=== PATIENT | male | born 1960 ===

== ENCOUNTER 2022-12-21 08:31 | Outpatient (REF) | payer SELFPAY ==
--- NOTE | 2022-12-21 12:57 | MHC.AU.HA3 ---
Hearing Instrument Follow-Up- Binaural Date of Visit: 12/21/22 Right Ear: Make, Model, Color, Serial Number: Oticon OPN S1 miniRITE SN: [id number] Color: Silver Stockholder Repair Warranty: 04/04/2022 Stockholder Loss and Damage Warranty: 04/04/2022 Battery Size: 312 Endocrinology Teacher/Slim Tube: 2/85 Earmold/Dome/CShell/SlimTip:8mm double rowan dome Type of Wax Guard: miniFit Dispensed By: [facility] Date of Fitting: February 2019 Left Ear: Make, Model, Color, Serial Number: Oticon OPN S1 miniRITE SN: [id number] Color: Silver Stockholder Repair Warranty: 04/04/2022 Stockholder Loss and Damage Warranty: 04/04/2022 Battery Size: 312 Endocrinology Teacher/Slim Tube: 2/85 Earmold/Dome/CShell/SlimTip: 8mm double rowan dome Type of Wax Guard: miniFit Dispensed By: [facility] Date of Fitting: February 2019 Follow-Up Summary: Yakov was a previous patient at the audiology clinic at [facility]. He has decided to transfer care here. His left chauffeur airport limousine is broken at the junction to the hearing aid. Cleaned both hearing aids. Replaced domes, wax guards, and retention tails and replaced left chauffeur airport limousine. Paid $150.00. Recommendations: Hearing instrument follow-up or maintenance as needed. Diagnosis Code(s): Primary Diagnosis: H90.3 Bilateral Sensorineural Hearing Loss Signature: Provider: Juan Milan, [facility]
== END 2022-12-21 08:32 | disposition home or self-care (01) ==
LOC: HO.HAP 08:31
PROVIDERS: Visit Provider Internal Medicine
DX: Z46.1 Encounter for fitting and adjustment of hearing aid (principal); H90.3 Sensorineural hearing loss, bilateral
CPT/HCPCS: V5299

== ENCOUNTER 2023-12-28 08:52 | Outpatient (REF) | payer BC, SELFPAY | END 2023-12-28 08:53 | disposition home or self-care (01) | LOC: HO.SH 08:52 | PROVIDERS: Visit Provider Nurse Practitioner Primary Care | DX: Z01.118 Encounter for examination of ears and hearing with other abnormal findings (principal); H90.3 Sensorineural hearing loss, bilateral | CPT/HCPCS: 92557 ==

== ENCOUNTER 2023-12-28 09:34 | Outpatient (REF) | payer SELFPAY ==
--- NOTE | 2023-12-28 09:55 | MHC.AU.HA3 ---
Hearing Instrument Follow-Up- Binaural Date of Visit: 12/28/23 Right Ear: George, Model, Color, Serial Number: Oticon OPN S1 miniRITE SN: [id number] Color: Silver Casing Finisher And Stuffer Repair Warranty: 04/04/2022 Casing Finisher And Stuffer Loss and Damage Warranty: 04/04/2022 Battery Size: 312 Construction Teacher/Slim Tube: 2/85 Earmold/Dome/CShell/SlimTip:8mm power dome with retention tail Type of Wax Guard: miniFit Dispensed By: [facility] Date of Fitting: February 2019 Left Ear: George, Model, Color, Serial Number: Oticon OPN S1 miniRITE SN: [id number] Color: Silver Casing Finisher And Stuffer Repair Warranty: 04/04/2022 Casing Finisher And Stuffer Loss and Damage Warranty: 04/04/2022 Battery Size: 312 Construction Teacher/Slim Tube: 2/85 Earmold/Dome/CShell/SlimTip: 8mm power dome with retention tail Type of Wax Guard: miniFit Dispensed By: [facility] Date of Fitting: February 2019 Follow-Up Summary: Updated hearing test and routine hearing aid maintenance. Noticing increasing hearing difficulties even with hearing aids. Requested records from [facility] to determine if there has been a change in hearing. Cleaned both hearing aids. Replaced domes, wax guards, and retention tails. Vacuumed microphones. Ran through dehumidifier. Listening check demonstrated hearing aids amplifying clearly. Switched to 8mm power domes due to limited high frequency gain from feedback analyzer. Improvement in feedback curve. Reprogrammed with power domes to updated hearing test. Noted improvement in sound quality in office. Domes feel full in ears but willing to acclimate. Recommendations: Hearing instrument follow-up or maintenance as needed. Please contact our clinic with any questions or concerns. Diagnosis Code(s): Primary Diagnosis: H90.3 Bilateral Sensorineural Hearing Loss Signature: Provider: Juan Milan, [facility]
== END 2023-12-28 09:35 | disposition home or self-care (01) ==
LOC: HO.HAP 09:34
PROVIDERS: Visit Provider Nurse Practitioner Primary Care
DX: Z46.1 Encounter for fitting and adjustment of hearing aid (principal); H90.3 Sensorineural hearing loss, bilateral
CPT/HCPCS: 92593; V5267

== ENCOUNTER 2024-12-09 08:29 | Outpatient (REF) | payer SELFPAY ==
--- OUTSIDE RECORDS SUMMARY | 2024-12-09 08:36 | XMS_ITS | Clinical Summary ---
Author Organization [address] [place] [address] Address [address] [place] [address] Phone Care Team Providers Care Lining Strap Closer Name Role Phone Analy Giraldo NP Primary Care Provider +1- [phone] Medications evolocumab (Repatha SureClick) 140 mg/mL pen injector injection Inject 1 mL (140 mg total) under the skin every 14 (fourteen) days. 6 mL 3 05/30/2024 Active Encounters Date Type Department Care Team Description 11/04/[address] [facility] [address] [place] [address] Julio Yusuf MD Prior Auth (Repatha SureClick 140MG/ML auto-injectors) from Last 3 Months Medical History Medical History Date Comments Depression DX:Depression Anxiety DX:Anxiety Bladder cancer ([facility]/HCC V24, [facility]/HCC V28) DX:Bladder cancer ([facility]) Hearing loss DX:Hearing loss Kidney calculus DX:Kidney calcul us CARLOS (obstructive sleep apnea) DX :CARLOS (obstructive sleep apnea) Restless leg DX:Restless leg Social History Tobacco Use Types Packs/Day Years Used Date Smoking Tobacco: Former Smokeless Tobacco: Never Alcohol Use Standard Drinks/Week Comments Yes 0 (1 standard drink = 0.6 oz pur e alcohol) Sex and Gender Information Value Date Recorded Sex Assigned at Not on file Legal Sex Male 2:30 AM EST Gender Identity Not on file Sexual Orientation Not on file Obstetrics History Last Filed Vital Signs Vital Sign Reading Time Taken Comments Blood Pressure 120/84 10/15/2023 9:24 AM EDT Sit ting L Arm Pulse 73 10/15/2023 9:24 AM EDT Temperature - - Respiratory Rate - - Oxygen Saturation - - Inhaled Oxygen Concentration - - Weight 104 kg (230 lb) 10/15/2023 9:24 AM EDT Height 175.3 cm (5' 9 ) 10/15/2023 9:24 AM EDT Body Mass Index 33.96 10/15/2023 9:24 AM EDT Plan of Treatment Health Maintenance Due Date Last Done Comments COVID-19 Vaccine (#1) 12/05/1965 DTaP,Tdap,and Td Vaccines (1 - Tdap) 1981 Zoster Vaccines (1 of 2) 1981 Pneumococcal Vaccine: 50+ Ye ars (1 of 1 - PCV) 2012 Colorectal Cancer Screening: Colonoscopy 05/14/2022 Depression Screening 05/14/2022 HIV Screening 05/14/2022 Hepatitis C Screening 05/14/2022 Social Influencers of Health Screening 05/14/2022 Influenza Vaccine (Season Ended) 2025 Cholesterol Screening (Lipid Panel) 11/10/2029 11/10/2024 RSV Immunization Adult Patie nts (1 - 1-dose 75+ series) 2037 HIB Vaccines Aged Out No longer eligi ble based on patient's age to complete this topic HPV Vaccines Aged Out No longer eligi ble based on patient's age to complete this topic Hepatitis A Vaccines Aged Out No long er eligible based on patient's age to complete this topic Hepatitis B Vaccines Aged Out No long er eligible based on patient's age to complete this topic IPV Vaccines Aged Out No longer eligi ble based on patient's age to complete this topic MMR Vaccines Aged Out No longer eligi ble based on patient's age to complete this topic Meningococcal ACWY Vaccine Aged Out N o longer eligible based on patient's age to complete this topic Meningococcal B Vaccine Aged Out No l onger eligible based on patient's age to complete this topic Pneumococcal Vaccine: Pediat rics (0 to 5 Years) and At-Risk Patients (6 to 64 Years) Aged Out No longer eligi ble based on patient's age to complete this topic RSV Immunization Patients Un raul 20 months Aged Out No longer eligible b ased on patient's age to complete this topic Varicella Vaccines Aged Out No longer eligible based on patient's age to complete this topic Procedures Procedure Name Priority Date/Time Associated Diagnosis Comments LIPID PANEL WITH REFLEX TO DIRECT LDL Routine 11/10/2024 9:30 AM EDT Mixed hyperlipidemia from Last 3 Months Results * (ABNORMAL) Lipid panel with reflex to direct LDL (11/10/2024 9:30 AM EDT) Cholesterol 180 0 - 200 mg/dL LAB CHEMISTRY METHOD 11/10/2024 2:55 PM EDT [facility] Triglycerides 99 0 - 150 mg/dL LAB CHEMISTRY METHOD 11/10/2024 2:55 PM EDT [facility] HDL 57 >=40 mg/dL LAB CHEMISTRY METHOD 11/10/2024 2:55 PM EDT [facility] LDL Calculated 103(H) 0 - 100 mg/dL LAB CHEMISTRY METHOD 11/10/2024 2:55 PM EDT [facility] VLDL Cholesterol Stanley 19.8 mg/dL LAB CHEMISTRY METHOD 11/10/2024 2:55 PM EDT [facility] Non HDL Chol. (LDL+VLDL) 123 <145 mg/dL LAB CHEMISTRY METHOD 11/10/2024 2:55 PM EDT [facility] Chol/HDL Ratio 3.2 0.0 - 4.4 LAB CHEMISTRY METHOD 11/10/2024 2:55 PM EDT [facility] Blood Venous blood specimen / Unknown Venipuncture / Unknown 11/10/2024 9:30 AM EDT 11/10/2024 9:30 AM EDT us Julio Yusuf MD LAB BLOOD ORDERABLES Final Resul t [facility] [address] [place] [address], from Last 3 Months Insurance [facility] Care Teams Lining Strap Closer Relationship Specialty Start Date End Date Analy Giraldo NP PCP - General 04/23/23
--- OUTSIDE RECORDS SUMMARY | 2024-12-09 08:36 | XMS_ITS | Patient Health Record ---
Author Organization [facility] [employer] [facility] us Address [address] [address] [place] [address] Care Team Providers Care Pole Frame Construction Worker Name Role Phone Unknown, Unknown Primary Care Provider Unavailab le Allergies Allergen (clinical drug ingredient) Drug/Non Drug Allergy documented on EMR Reaction Allergy Type Onset Date Status amoxicillin Amoxicillin hives Drug Allergy Act bart sulfamethoxazole / trimethoprim Bactrim vomiting Drug Allergy Active Reason For Referral No Information Medications Medication SIG (Take, Route, Fr equency, Duration) Notes Start Date End Date Status Meloxicam Active Sertraline HCl Activ e Ondansetron HCl 8 MG 1 tablet as needed Orally twice a day; Duration: 3 days 03/13/2023 Active Aspir-81 Active Meclizine HCl 25 MG 1 tablet as needed O rally every 12 hrs; Duration: 5 days 03/13/2023 Active Plan Of Treatment No Information Insurance Providers Payer Name Payer Address Payer Phone Subscriber Number Group Number Insured Name Patient Relationship to Insured Coverage Start Date Coverage End Date [employer] PPO [address] [address] [place] [address] [id number] FK JOSE ROSADO Self - patient is the insured
== END 2024-12-09 08:30 | disposition home or self-care (01) ==
LOC: HO.HAP 08:29
DX: Z13.89 Encounter for screening for other disorder (principal)

== ENCOUNTER 2024-12-29 11:04 | Outpatient (REF) | payer SELFPAY ==
--- OUTSIDE RECORDS SUMMARY | 2024-12-29 12:14 | XMS_ITS | Clinical Summary ---
Author Organization [address] [place] [address] Address [address] [place] [address] Phone Care Team Providers Care Director Metabolism Name Role Phone Analy Giraldo NP Primary Care Provider +1- [phone] Medications evolocumab (Repatha SureClick) 140 mg/mL pen injector injection Inject 1 mL (140 mg total) under the skin every 14 (fourteen) days. 6 mL 3 05/30/2024 Active Encounters Date Type Department Care Team Description 11/04/2024 Telephone [facility] [address] [place] [address] Julio Yusuf MD Prior Auth (Repatha SureClick 140MG/ML auto-injectors) from Last 3 Months Medical History Medical History Date Comments Depression DX:Depression Anxiety DX:Anxiety Bladder cancer ([facility]/HCC V24, [facility]/HCC V28) DX:Bladder cancer ([facility]) Hearing loss DX:Hearing loss Kidney calculus DX:Kidney [...] PCV) 2012 Colorectal Cancer Screening: Colonoscopy 05/14/2022 HIV Screening 05/14/2022 Hepatitis C Screening 05/14/2022 Social Influencers of Health Screening 05/14/2022 Depression Screening 06/11/2024 Influenza Vaccine (#1) 2025 Cholesterol Screening (Lipid Panel) 11/10/2029 11/10/2024 [...] LAB CHEMISTRY METHOD 11/10/2024 2:55 PM EDT [facility] Triglycerides 99 0 - 150 mg/dL LAB CHEMISTRY METHOD 11/10/2024 2:55 PM EDT [facility] HDL 57 >=40 mg/dL LAB CHEMISTRY METHOD 11/10/2024 2:55 PM EDT [facility] LDL Calculated 103(H) 0 - 100 mg/dL LAB CHEMISTRY METHOD 11/10/2024 2:55 PM EDT [facility] VLDL Cholesterol Stanley 19.8 mg/dL LAB CHEMISTRY METHOD 11/10/2024 2:55 PM EDT [facility] Non HDL Chol. (LDL+VLDL) 123 <145 mg/dL LAB CHEMISTRY METHOD 11/10/2024 2:55 PM EDT [facility] Chol/HDL Ratio 3.2 0.0 - 4.4 LAB CHEMISTRY METHOD 11/10/2024 2:55 PM EDT [facility] Blood Venous blood specimen / Unknown Venipuncture / Unknown 11/10/2024 9:30 AM EDT 11/10/2024 9:30 AM EDT us Julio Yusuf MD LAB BLOOD ORDERABLES Final Resul t [facility] [address] [place] [address], [place] [phone] from Last 3 Months Insurance [facility] Care Teams Director Metabolism Relationship Specialty Start Date End Date Analy Giraldo NP PCP - General 04/23/23
--- OUTSIDE RECORDS SUMMARY | 2024-12-29 12:14 | XMS_ITS ---
Author Name [facility] Organization Unknown Encounters Encounter Type Encounter Reason Primary Diagnosis Location Date Ambulatory 03/13 Care Team Organization Name Specialty Phone Email Start Date End Da te 03/13/2023 1
--- OUTSIDE RECORDS SUMMARY | 2024-12-29 12:14 | XMS_ITS | Patient Health Record ---
Author Organization [facility] [facility] us Address [address] [place] [address] Care Team Providers Care Director Of Software Development Name Role Phone Unknown, Unknown Primary Care [...] Insured Coverage Start Date Coverage End Date [facility] PPO [address] [address] [place] [address] [id number] FK JOSE ROSADO Self - patient is the insured
== END 2024-12-29 11:05 | disposition home or self-care (01) ==
LOC: HO.SH 11:04
PROVIDERS: Visit Provider Nurse Practitioner Primary Care
DX: H90.3 Sensorineural hearing loss, bilateral (principal)
CPT/HCPCS: V5014

== ENCOUNTER 2025-03-04 09:16 | Outpatient (REF) | payer SELFPAY ==
--- OUTSIDE RECORDS SUMMARY | 2025-03-04 10:53 | XMS_ITS | Clinical Summary ---
Author Organization [address] [place] [address] Address [address] [place] [address] Phone Care Team Providers Care Oleomargarine Maker Name Role Phone Analy Giraldo NP Primary Care Provider +1- [phone] Allergies Active Allergy Reactions Criticality Noted Date Comments Penicillins Hives 04/23/2023 Sulfamethoxazole-Trimethoprim Nausea And Vomiting 02/15/2025 Medications evolocumab (Repatha SureClick) 140 mg/mL pen injector injection Inject 1 mL (140 mg total) under the skin every 14 (fourteen) days. 6 mL 3 4 Active acetaminophen (TYLENOL) 500 mg tablet Take 2 tablets (1,000 mg total) by mouth every 6 (six) hours if needed for mild pain for up to 10 days. 30 tablet 5 02/26/20 25 naproxen (NAPROSYN) 500 mg tablet Take 1 tablet (500 mg total) by mouth 2 (two) times a day with meals for 15 days. 30 tablet 5 03/02/20 25 tamsulosin (FLOMAX) 0.4 mg 24 hr capsule Take 1 capsule (0.4 mg total) by mouth 1 (one) time each day for 7 days. Capsules should be taken 30 minutes following the same meal each day. 7 capsule 5 02/23/20 25 Encounters Date Type Department Care Team Description 02/15/2025 8:53 AM EDT - 02/15/2025 10:46 AM EDT Emergency [facility] [address] [place] [address] Dre Rodney MD Calculus of distal left ureter (Primary Dx) Discharge Disposition: Home or Self Care from Last 3 Months Medical History Medical History Date Comments Depression DX:Depression Anxiety DX:Anxiety Bladder cancer (CMS/HCC V24, CMS/HCC V28) DX:Bladder cancer (HCC) Hearing loss DX:Hearing loss Kidney calculus DX:Kidney [...] Sign Reading Time Taken Comments Blood Pressure 146/78 02/15/2025 10:45 AM EDT Pulse 75 02/15/2025 10:45 AM EDT Temperature 36.2 C (97.2 F) 02/15/2025 8:52 AM EDT Respiratory Rate 16 02/15/2025 10:45 AM EDT Oxygen Saturation 98% 02/15/2025 10:45 AM EDT Inhaled Oxygen Concentration - - Weight 99.8 kg (220 lb) 02/15/2025 8:52 AM EDT Height 175.3 cm (5' 9 ) 02/15/2025 8:52 AM EDT Body Mass Index 32.49 02/15/2025 8:52 AM EDT Plan of Treatment Health Maintenance [...] Procedure Name Priority Date/Time Associated Diagnosis Comments CT ABDOMEN PELVIS WO CONTRAST STAT 02/15/2025 10:17 AM EDT [facility]NA URINE CULTURE TUBE STAT 02/15/2025 9:24 AM EDT URINALYSIS WITH REFLEX MICROSCOPIC AND CULTURE STAT 02/15/2025 9:24 AM EDT URINALYSIS WITH REFLEX MICROSCOPIC AND CULTURE STAT 02/15/2025 9:24 AM EDT LIPID PANEL WITH REFLEX TO DIRECT LDL Routine 11/10/2024 9:30 AM EDT Mixed hyperlipidemia from Last 3 Months or Most Recently Relevant to Health Maintenance Results * CT Abdomen Pelvis wo Contrast (02/15/2025 10:17 AM EDT) Anatomical Region Laterality Modality Body Computed Tomogra phy 02/15/2025 11:3 9 AM EDT Impressions 02/15/2025 11:44 AM EDT Punctate calculus at the left ureterovesical junction with mild associated hydroureteronephrosis. -------- FINAL REPORT -------- Dictated By: Yohan Mcneil Dictated Date: 02/15/2025 11:39 ET Assigned Physician: Yohan Mcneil Reviewed and Electronically Signed By: Yohan Mcneil Signed Date: 02/15/2025 11:44 ET Workstation ID: [id number] Transcribed By: Self Edit Transcribed Date: 02/15/2025 11:39 ET Narrative 02/15/2025 11:44 AM EDT PROCEDURE: CT of the abdomen and pelvis without intravenous contrast. HISTORY: Flank pain, kidney stone suspected. COMPARISON: None. TECHNIQUE: Noncontrast CT of the abdomen and pelvis with coronal and sagittal reformats. Dose length product: 1178 mGy-cm. FINDINGS: Lung bases: Mild dependent atelectasis. Cardiac: Normal. Liver: Limited evaluation without intravenous contrast. No visible abnormality. Biliary: Normal gallbladder and biliary tree. Pancreas: Limited evaluation without intravenous contrast. No visible abnormality. Spleen: Limited evaluation without intravenous contrast. No visible abnormality. Adrenal glands: Normal. Kidneys: Limited evaluation without intravenous contrast. There are several punctate nonobstructing calculi in the right kidney and a solitary punctate nonobstructing calculus in the upper pole of the left kidney. Punctate (1-2 mm) calculus in the distal left ureter at the ureterovesical junction with mild dilatation of the ureter and mild hydronephrosis. Retroperitoneum: No mass or adenopathy. Abdominal vasculature: Mild atherosclerotic calcification. Bowel/mesentery: No obstruction or adenopathy. No mass or ascites. Normal appendix. Abdominal wall: Normal. Pelvic nodes: No adenopathy. Pelvic organs: Normal. Bones: Degenerative changes of the spine, hips, SI joints, and pubic symphysis. 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 Procedure Note Yohan Mcneil MD - 02/15/2025 PROCEDURE: CT of the abdomen and pelvis without intravenous contrast. HISTORY: Flank pain, kidney stone suspected. COMPARISON: None. TECHNIQUE: Noncontrast CT of the abdomen and pelvis with coronal andsagittal reformats. Dose length product: 1178 mGy-cm. FINDINGS: Lung bases: Mild dependent atelectasis. Cardiac: Normal. Liver: Limited evaluation without intravenous contrast. No visibleabnormality. Biliary: Normal gallbladder and biliary tree. Pancreas: Limited evaluation without intravenous contrast. No visibleabnormality. Spleen: Limited evaluation without intravenous contrast. No visibleabnormality. Adrenal glands: Normal. Kidneys: Limited evaluation without intravenous contrast. There areseveral punctate nonobstructing calculi in the right kidney and a solitarypunctate nonobstructing calculus in the upper pole of the left kidney.Punctate (1-2 mm) calculus in the distal left ureter at the ureterovesicaljunction with mild dilatation of the ureter and mild hydronephrosis. Retroperitoneum: No mass or adenopathy. Abdominal vasculature: Mild atherosclerotic calcification. Bowel/mesentery: No obstruction or adenopathy. No mass or ascites.Normal appendix. Abdominal wall: Normal. Pelvic nodes: No adenopathy. Pelvic organs: Normal. Bones: Degenerative changes of the spine, hips, SI joints, and pubicsymphysis. 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 IMPRESSION: Punctate calculus at the left ureterovesical junction with mild associatedhydroureteronephrosis. -------- FINAL REPORT -------- Dictated By: Yohan Mcneil Dictated Date: 02/15/2025 11:39 ET Assigned Physician: Yohan Mcneil Reviewed and Electronically Signed By: Yohan Mcneil Signed Date: 02/15/2025 11:44 ET Workstation ID: [id number] Transcribed By: Self Edit Transcribed Date: 02/15/2025 11:39 ET Dre Rodney MD IMG CT PROCEDURES Final Result * (ABNORMAL) Urinalysis with reflex microscopic and culture (02/15/2025 9:24 AM EDT) Specific Morse Urine 1.026 1.003 - 1.030 LAB URINALYSIS - AUTOMATED METHOD 02/15/2025 9:44 AM EDT [facility] pH, Urine 6.0 5.0 - 8.0 pH LAB URINALYSIS - AUTOMATED METHOD 02/15/2025 9:44 AM [facility] Leukocytes, Urine Negative Negative LAB URINALYSIS - AUTOMATED METHOD 02/15/2025 9:44 AM [facility] Nitrite, Urine Negative Negative LAB URINALYSIS - AUTOMATED METHOD 02/15/2025 9:44 AM [facility] Protein, Urine Trace <=Trace mg/dL LAB URINALYSIS - AUTOMATED METHOD 02/15/2025 9:44 AM [facility] Glucose, Urine Negative Negative mg/dL LAB URINALYSIS - AUTOMATED METHOD 02/15/2025 9:44 AM [facility] Ketones, Urine Negative Negative mg/dL LAB URINALYSIS - AUTOMATED METHOD 02/15/2025 9:44 AM [facility] Urobilinogen, Urine 0.2 0.2 - 1.0 mg/dL LAB URINALYSIS - AUTOMATED METHOD 02/15/2025 9:44 AM [facility] Bilirubin, Urine Negative Negative LAB URINALYSIS - AUTOMATED METHOD 02/15/2025 9:44 AM [facility] Blood, Urine Trace(A) Negative LAB URINALYSIS - AUTOMATED METHOD 02/15/2025 9:44 AM [facility] RBC, Urine 7.4(H) 0 - 4 /HPF LAB URINALYSIS - AUTOMATED METHOD 02/15/2025 9:44 AM [facility] WBC, Urine 0.4 0 - 4 /HPF LAB URINALYSIS - AUTOMATED METHOD 02/15/2025 9:44 AM [facility] Squamous Epithelial, Urine 10 0 - 60 /LPF LAB URINALYSIS - AUTOMATED METHOD 02/15/2025 9:44 AM [facility] Bacteria, Urine Negative Negative /HPF LAB URINALYSIS - AUTOMATED METHOD 02/15/2025 9:44 AM [facility] Hyaline Casts, Urine 0.4 0 - 3 /LPF LAB URINALYSIS - AUTOMATED METHOD 02/15/2025 9:44 AM EDT [facility] Urine Urine specimen obtained by clean catch procedure / Unknown Non-blood Collection / Unknown 02/15/2025 9:24 AM EDT 02/15/2025 9:36 AM EDT us Dre Rodney MD LAB URINE ORDERABLES Final Resul t Performing Organization Address City/[facility]/ZIP Co de Phone Number [facility] [address] [place] [address], [place] [phone] * Luna urine culture tube (02/15/2025 9:24 AM EDT) Extra Tube Hold for add-ons. 02/15/2025 11:01 AM EDT [facility] Comment:Auto resulted. Urine Urine specimen obtained by clean catch procedure / Unknown Non-blood Collection / Unknown 02/15/2025 9:24 AM EDT 02/15/2025 9:36 AM EDT us Dre Rodney MD LAB URINE ORDERABLES Final Resul t Performing Organization Address [facility] de Phone Number [facility] [address] [place] [address], [place] [phone] * (ABNORMAL) Lipid panel with reflex to direct LDL (11/10/2024 9:30 AM EDT) Cholesterol 180 0 - 200 mg/dL LAB CHEMISTRY METHOD 11/10/2024 2:55 PM EDT [facility] Triglycerides 99 0 - 150 mg/dL LAB CHEMISTRY METHOD 11/10/2024 2:55 PM EDT [facility] HDL 57 >=40 mg/dL LAB CHEMISTRY METHOD 11/10/2024 2:55 PM EDT [facility] LDL Calculated 103(H) 0 - 100 mg/dL LAB CHEMISTRY METHOD 11/10/2024 2:55 PM EDT [facility] VLDL Cholesterol Stanley 19.8 mg/dL LAB CHEMISTRY METHOD 11/10/2024 2:55 PM EDT [facility] Non HDL Chol. (LDL+VLDL) 123 <145 mg/dL LAB CHEMISTRY METHOD 11/10/2024 2:55 PM EDT [facility] Chol/HDL Ratio 3.2 0.0 - 4.4 LAB CHEMISTRY METHOD 11/10/2024 2:55 PM EDT [facility] Blood Venous blood specimen / Unknown Venipuncture / Unknown 11/10/2024 9:30 AM EDT 11/10/2024 9:30 AM EDT us Julio Yusuf MD LAB BLOOD ORDERABLES Final Resul t [facility] [address] [place] [address], from Last 3 Months or Most Recently Relevant to Health Maintenance Insurance [facility] Care Teams Oleomargarine Maker Relationship Specialty Start Date End Date Analy Giraldo NP [address] [place] [address] PCP - General Nurse Practitioner 02/15/25
--- OUTSIDE RECORDS SUMMARY | 2025-03-04 10:53 | XMS_ITS | Patient Health Record ---
Author Organization [facility] us Address [address] [place] [address] Care Team Providers [employer] Truck Driver Name Role Phone Unknown, Unknown Primary Care [...] Insured Coverage Start Date Coverage End Date [facility] PPO [address] [address] [place] [address] [id number] FK JOSE ROSADO Self - patient is the insured
== END 2025-03-04 09:17 | disposition home or self-care (01) ==
LOC: HO.HAP 09:16
DX: Z13.89 Encounter for screening for other disorder (principal)

== ENCOUNTER 2025-03-19 13:49 | Outpatient (REF) | payer SELFPAY | END 2025-03-19 13:50 | disposition home or self-care (01) | LOC: HO.HAP 13:49 | DX: Z13.89 Encounter for screening for other disorder (principal) ==